=== PATIENT | male | born 1995 | race Caucasian/White ===

== ENCOUNTER 2024-01-23 12:15 | Emergency (ER) | payer OTHER ==
[~2024-01-23] VITALS: Ht 193 cm; Wt 104.4 kg
[2024-01-23] MEDS: GLUCAGON FOR INJ 1 MG VIAL IV ONE (13:07)
[2024-01-23 13:10] VITALS: PULSE 65; RESP 16; TEMP 99.2; O2SAT 97
== END 2024-01-23 13:10 | disposition home or self-care (01) ==
LOC: FSED 12:21
DX: K22.2 Esophageal obstruction (principal); T18.128A Food in esophagus causing other injury, initial encounter
CPT/HCPCS: 96374; 99283; J1610